=== PATIENT | female | born 1970 | race African-American/Black ===

== ENCOUNTER 2021-04-28 09:54 | Day surgery (SDC) | payer OTHER ==
[~2021-04-28] VITALS: Ht 162.6 cm; Wt 88.0 kg
[2021-04-28 11:57] LABS: BASOPHILS # (AUTO) 0.1 K/uL (0.00-0.22); EOSINOPHILS # (AUTO) 0.4 K/uL (0-0.4); EOSINOPHILS % (AUTO) 6.6 % (0.0-4.0); HEMATOCRIT 37.8 % (36-48); LYMPHOCYTES # (AUTO) 1.6 K/uL (2.5-16.5); LYMPHOCYTES % (AUTO) 27.8 % (20.5-51.1); MEAN CORPUSCULAR HEMOGLOBIN 32 pg (27-31); MEAN CORPUSCULAR HGB CONC 34 g/dL (33-37); MEAN CORPUSCULAR VOLUME 92.2 fL (80-94); MONOCYTES # (AUTO) 0.7 K/uL (0.8-1.0); MONOCYTES % (AUTO) 11.2 % (1.7-9.3); NEUTROPHILS # (AUTO) 3.2 K/uL (1.8-7.7); NEUTROPHILS % (AUTO) 53.4 % (42.2-75.2); PLATELET COUNT (AUTO) 178 K/uL (140-450); RED CELL DISTRIBUTION WIDTH 13.1 % (11.6-13.7); WHITE BLOOD COUNT (AUTO) 5.9 K/uL (4.8-10.8)
[2021-04-28 12:06] LABS: PROTHROMBIN TIME 10.6 secs (10.8-13.4)
[2021-04-28] MEDS ORDERED: LIDOCAINE 2% 1000 MG/50 ML VIAL INJ ONE (12:31)
[2021-04-28] MEDS ORDERED: MORPHINE SULFATE 2 MG/ML SYR IVP PRN (13:15)
[2021-04-28] MEDS ORDERED: MORPHINE SULFATE 2 MG/ML SYR ONE (13:23)
[2021-04-28] MEDS ORDERED: MORPHINE SULFATE 2 MG/ML SYR IVP ONE ×2 (13:55→14:25)
== END 2021-04-28 14:50 | disposition home or self-care (01) ==
LOC: MMU 09:54 → MDS 09:54
PROVIDERS: ATTEND Internal Medicine Gastroenterology
DX: K75.81 Nonalcoholic steatohepatitis (NASH) (principal); Z80.0 Family history of malignant neoplasm of digestive organs; Z79.899 Other long term (current) drug therapy
CPT/HCPCS: 36415; 47000; 76942; 85025; 85610; 85730; J2001; J2270

== ENCOUNTER 2022-08-10 06:04 | Day surgery (SDC) | payer OTHER ==
[2022-08-10 08:07] LABS: BASOPHILS # (AUTO) 0.1 K/uL (0.00-0.22); BASOPHILS % (AUTO) 1.2 % (0.0-2.0); EOSINOPHILS # (AUTO) 0.2 K/uL (0-0.4); EOSINOPHILS % (AUTO) 4.5 % (0.0-4.0); HEMATOCRIT 42.1 % (36-48); HEMOGLOBIN 14.3 g/dL (12.0-16.0); LYMPHOCYTES # (AUTO) 1.6 K/uL (2.5-16.5); LYMPHOCYTES % (AUTO) 31.2 % (20.5-51.1); MEAN CORPUSCULAR HEMOGLOBIN 31 pg (27-31); MEAN CORPUSCULAR HGB CONC 34 g/dL (33-37); MEAN CORPUSCULAR VOLUME 92.2 fL (80-94); MONOCYTES # (AUTO) 0.5 K/uL (0.8-1.0); MONOCYTES % (AUTO) 10.6 % (1.7-9.3); NEUTROPHILS # (AUTO) 2.7 K/uL (1.8-7.7); NEUTROPHILS % (AUTO) 52.5 % (42.2-75.2); PLATELET COUNT (AUTO) 172 K/uL (140-450); RED BLOOD CELL COUNT(AUTO) 4.56 MIL/uL (4.20-5.40); WHITE BLOOD COUNT (AUTO) 5.2 K/uL (4.8-10.8)
[2022-08-10 08:20] LABS: PROTHROMBIN TIME 10.4 secs (10.8-13.4)
[2022-08-10] MEDS ORDERED: LIDOCAINE MPF 1% 5 ML ONE (09:02)
[2022-08-10] MEDS ORDERED: MORPHINE SULFATE 2 MG/ML SYR IVP PRN (10:00)
[2022-08-10] MEDS ORDERED: MORPHINE SULFATE 2 MG/ML SYR ONE (10:04)
== END 2022-08-10 11:10 | disposition home or self-care (01) ==
LOC: MDS 06:04 → MMU 06:10 → MDS 11:10
PROVIDERS: ATTEND Internal Medicine Gastroenterology
DX: K76.0 Fatty (change of) liver, not elsewhere classified (principal); I10 Essential (primary) hypertension; Z90.710 Acquired absence of both cervix and uterus; Z79.899 Other long term (current) drug therapy; Z20.822 Contact with and (suspected) exposure to COVID-19
CPT/HCPCS: 36415; 47000; 76942; 85025; 85610; 85730; 87426; J2001; J2270; Q0092

== ENCOUNTER 2023-08-13 06:36 | Day surgery (SDC) | payer OTHER ==
[~2023-08-13] VITALS: Ht 170.2 cm; Wt 81.6 kg
[2023-08-13] MEDS ORDERED: LIDOCAINE MPF 1% 10 ML ONE (07:17)
[2023-08-13] MEDS ORDERED: MIDAZOLAM 2 MG/2 ML VIAL ONE (07:33)
[2023-08-13] MEDS ORDERED: fentaNYL citrate 0.05 MG/ML VIAL ONE (07:33)
== END 2023-08-13 08:58 | disposition home or self-care (01) ==
LOC: MOR 06:36 → MMU 06:49 → MOR 08:58
PROVIDERS: ATTEND Internal Medicine Gastroenterology
DX: K75.81 Nonalcoholic steatohepatitis (NASH) (principal); Z80.0 Family history of malignant neoplasm of digestive organs; Z90.710 Acquired absence of both cervix and uterus; Z79.899 Other long term (current) drug therapy
CPT/HCPCS: 47000; 76942; J2001; J2250; J3010; Q0092